=== PATIENT | female | born 1990 | race African-American/Black ===

== ENCOUNTER 2017-09-22 15:08 | Emergency (ER) | payer SELFPAY ==
[~2017-09-22] VITALS: Ht 152.4 cm; Wt 51.7 kg
[2017-09-22 15:32] VITALS: BP 115/72
[2017-09-22] MEDS ORDERED: EPINEPHrine 1mg/1ml Amp SUBQ ONE (16:00)
[2017-09-22] MEDS ORDERED: HYDROCORTISONE30 G2 TP (16:21)
[2017-09-22] MEDS ORDERED: BENADRYL25 MG ORAL (16:21)
[2017-09-22] MEDS ORDERED: PREDNISONE20 MG ORAL (16:21)
[2017-09-22] MEDS ORDERED: EPIPEN 2-P0.3 MG/0.3 IM (16:21)
--- NOTE | 2017-09-22 16:21 | Emergency Room Report ---
History of Present Illness General Chief Complaint: Allergic Reaction Source: Patient Present Illness HPI 27-year-old female patient presents ER complaining of allergic reaction status post 2 days ago. Reports she has multiple allergies including to wheat food and 2 days ago, states that she began to experience facial swelling at that time. States that she went home and took Zyrtec to help alleviate symptoms. Denies shortness of breath or other symptoms at that time. Reports that she has an EpiPen but did not use it because she was not having difficulty breathing. Reports woke up yesterday with increased facial swelling, denies tongue swelling or shortness of breath. Reports took another Zyrtec and rested. Reports woke up today with decreased facial swelling compared to yesterday symptoms. Reports she has been using cool compresses to decrease swelling. Reports been able to eat and drink normally without difficulty. Denies vomiting, chest pain, shortness of breath, other acute symptoms. Denies tongue swelling. denies new rash elsewhere on body, states he has a history of eczema, not currently taking medications for eczema. Allergies: Coded Allergies: CASEIN (Verified Allergy, Unknown, 09/22/17) CORN (Verified Allergy, Unknown, 09/22/17) PEANUT (Verified Allergy, Unknown, 09/22/17) SOY (Verified Allergy, Unknown, 09/22/17) TOMATO (Verified Allergy, Unknown, 09/22/17) Wheat (Verified Allergy, Unknown, 09/22/17) YEAST (Verified Allergy, Unknown, 09/22/17) Uncoded Allergies: CHOCOLATE (Allergy, Unknown, 09/22/17) EGG WHITE (Allergy, Unknown, 09/22/17) SHELLFISH (Allergy, Unknown, 09/22/17) Patient History Past Medical History: see triage record Last Menstrual Period: 09/20/2017 Now: No Reviewed Nursing Documentation: PMH: Agreed; PSxH: Agreed Nursing Documentation-PMH Past Medical History: No History, Except For Review of Systems All Other Systems: negative except mentioned in HPI Physical Exam Vital Signs Date Time Temp Pulse Resp B/P (MAP) Pulse Ox O2 Delivery O2 Flow Rate FiO2 09/22/17 15:21 98.0 82 14 115/72 99 Room Air 98.1 Sp02 EP Interpretation: reviewed, normal General Appearance: well appearing, no apparent distress, alert, GCS 15, non- toxic Head: normocephalic, atraumatic, other - mild facial urticaria noted, more prominent on left cheek and left side of face, no erythema, no TTP Eyes: bilateral eye normal inspection, bilateral eye PERRL ENT: hearing grossly normal, normal pharynx, no angioedema, normal voice, TMs + canals normal, uvula midline, moist mucus membranes Neck: full range of motion Respiratory: lungs clear, normal breath sounds, no rhonchi, no respiratory distress, no accessory muscle use, no wheezing, speaking full sentences, other - no stridor Cardiovascular #1: regular rate, rhythm, no edema Musculoskeletal: back normal, digits/nails normal, gait/station normal, normal range of motion, non-tender Neurologic: alert, oriented x3, responsive, motor strength/tone normal, sensory intact Psychiatric: mood/affect normal Skin: rash - ezcematous dry skin Medical Decision Making PA Attestation Dr. Granda is my supervising Physician whom patient management has been discussed with. Diagnostic Impression: Primary Impression: Allergic reaction ER Course Pt. presents to the ED c/o allergic reaction. Ddx considered but are not limited to allergic reaction, anaphylaxis, urticaria , cellulitis, abscess. Vital signs: are WNL, pt. is afebrile ER COURSE: Consult Dr. Granda, will provide patient with single dose of subcutaneous epi in ER. Will discharge home with steroids orally, first dose given in the ER. Begin taking steroids tomorrow. Continue taking Zyrtec. May take Benadryl at night. I drowsiness. follow-up with PCP and customer resolution specialist. do not eat known allergens. Avoid exposure to known allergens. Keep EpiPen with you at all times. will provide Rx. Strict ER precautions given, return to ER immediately for new or worsening of symptoms. Cool compresses to help reduce swelling symptoms. Follow-up credit verification clerk discuss eczema. Keep skin well hydrated. May use topical hydrocortisone for symptoms. Do not apply topical steroid to face or skin creases. DISCHARGE: Rx provided for prednisone Rx provided for EpiPen Provided for Benadryl Rx provided for hydrocortisone cream At this time pt is stable for d/c to home. Patient is resting comfortably, in no acute distress, nontoxic appearing, talking without difficulty. Patient to take medications as instructed Will provide with patient care instructions and any necessary prescriptions. Care plan and follow-up instructions provided. Patient instructed to follow-up with primary care provider in 3 - 5 days. Patient questions asked and answered. Patient reports understanding and agreement to treatment plan. ER precautions given. Patient instructed to return to ER immediately for any new or worsening of symptoms including but not limited to increasing SOB, persistent fever, chest pain, intractable vomiting. - Please note that this Emergency Department Report was dictated using [employer] transcription technology software, occasionally this can lead to erroneous entry secondary to interpretation by the dictation equipment. Last Vital Signs Date Time Temp Pulse Resp B/P (MAP) Pulse Ox O2 Delivery O2 Flow Rate FiO2 09/22/17 15:32 98.1 79 14 115/72 99 Room Air 98.1 Disposition: HOME, SELF-CARE Condition: Stable Scripts Hydrocortisone (Hydrocortisone Cream 2.5%) Y Cream.appl 1 APPLIC TP BID for 7 Days, #15 GM Prov: Fermin Conteh 09/22/17 Diphenhydramine Hcl* (BENADRYL*) 25 Mg Capsule 25 MG ORAL Q6H PRN for Itching, #30 CAP Prov: Fermin Conteh 09/22/17 Prednisone* (PREDNISONE*) 20 Mg Tablet 40 MG ORAL DAILY for 4 Days, #8 TAB Prov: Fermin Conteh 09/22/17 Epinephrine (Epipen 2-Vinh) 0.3 Mg/0.3 Ml Auto.injct 0.3 MG IM PRN, #1 EA Prov: Fermin Conteh 09/22/17 Referrals: NON PHYSICIAN (PCP) Patient Instructions: Eczema, Epinephrine Injection, Food Allergy Additional Instructions: Followup with primary care provider in 3 -5 days. Discuss referral to customer resolution specialist. Avoid exposure and ingesting known allergens. Request referral to dermatology for eczema symptoms. Do not scratch or itch. Apply cool compresses to affected area. Take medications as directed. Do not apply hydrocortisone cream to face or skin creases. SE Benadryl drowsiness, do not take prior to drinking, driving, operating heavy machinery. Patient questions asked and answered. ER precautions given, patient instructed to return to ER immediately for any new or worsening of symptoms. [facility] Fermin Conteh Sep 22, 2017 16:21
[2017-09-22 16:30] VITALS: BP 119/70
== END 2017-09-22 16:28 | disposition home or self-care (01) ==
LOC: EMR 16:08
DX: T78.40XA Allergy, unspecified, initial encounter (principal); X58.XXXA Exposure to other specified factors, initial encounter; Z91.012 Allergy to eggs; Z91.010 Allergy to peanuts; Z91.013 Allergy to seafood; Z91.018 Allergy to other foods
CPT/HCPCS: 96372; 99283; J0171; J7512

== ENCOUNTER 2017-11-06 00:49 | Emergency (ER) | payer SELFPAY ==
[~2017-11-06] VITALS: Ht 152.4 cm; Wt 52.2 kg
[~2017-11-06 00:49] MED LIST: BENADRYL25 MG ORAL; EPIPEN 2-P0.3 MG/0.3 IM; HYDROCORTISONE30 G2 TP; PREDNISONE20 MG ORAL
--- NOTE | 2017-11-06 01:09 | Emergency Room Report ---
History of Present Illness General Chief Complaint: Allergic Reaction Source: Patient Present Illness HPI Patient presents with allergic reaction. She feels swelling in her face. She thinks might be related to coconut rinse that she had been in her hair. She took an EpiPen at midnight and also Benadryl. Her face is still pulsing at this time. She is unsure whether the swelling has stopped worsening at this time. She denies pain. The patient has eczema. This is stable. She denies any vomiting, throat swelling or wheezing and no dyspnea. Patient is on her menstruation at this time. No fevers, chills, change in bowels, dysuria, headache. Allergies: Coded Allergies: CASEIN (Verified Allergy, Unknown, 09/22/17) CORN (Verified Allergy, Unknown, 09/22/17) PEANUT (Verified Allergy, Unknown, 09/22/17) SOY (Verified Allergy, Unknown, 09/22/17) TOMATO (Verified Allergy, Unknown, 09/22/17) Wheat (Verified Allergy, Unknown, 09/22/17) YEAST (Verified Allergy, Unknown, 09/22/17) Uncoded Allergies: CHOCOLATE (Allergy, Unknown, 09/22/17) EGG WHITE (Allergy, Unknown, 09/22/17) SHELLFISH (Allergy, Unknown, 09/22/17) Patient History Past Medical History: see triage record Social History: Denies: smoking Social History Narrative with sig other - works Last Menstrual Period: Sep Reviewed Nursing Documentation: PMH: Agreed; PSxH: Agreed Review of Systems All Other Systems: negative except mentioned in HPI Physical Exam Vital Signs Date Time Temp Pulse Resp B/P (MAP) Pulse Ox O2 Delivery O2 Flow Rate FiO2 11/06/17 00:56 98.5 104 18 118/74 100 Room Air 98.4 Sp02 EP Interpretation: reviewed, normal General Appearance: well appearing, no apparent distress, GCS 15 Head: normocephalic Eyes: bilateral eye PERRL, bilateral eye other - facial swelling ENT: normal pharynx, no angioedema, normal voice, moist mucus membranes Neck: supple Respiratory: lungs clear, normal breath sounds Cardiovascular #1: regular rate, rhythm Cardiovascular #2: 2+ radial (R) Gastrointestinal: normal inspection, normal bowel sounds, non tender, no mass, non-distended Musculoskeletal: back normal, gait/station normal, normal range of motion Neurologic: alert, oriented x3, grossly normal Psychiatric: mood/affect normal Skin: warm/dry, other - eczematous skin and facial swelling Medical Decision Making Diagnostic Impression: Primary Impression: Allergic reaction Qualified Codes: T78.40XA - Allergy, unspecified, initial encounter Additional Impressions: Hypokalemia Eczema Qualified Codes: L30.9 - Dermatitis, unspecified ER Course Patient presents with facial swelling after exposure to coconut rinse and after using EpiPen and benadryl. DDx; anaphylaxis, local allergic reaction amongst others. As she has given herself epi, will only repeat if sy worsening. Evaluation with labs and cardiac monitoring. Will treat with Solu-medrol and benadryl with IV hydration. Labs significant for leukocytosis (probably secondary to epi), low potassium. Improved with treatment and observation. Swelling somewhat improved. Potassium given po and IV. Etiology of low potassium unclear. Discussed findings and treatment plan with patient. Patient stable for outpatient observation and treatment. Laboratory Tests Test 11/06/17 01:15 White Blood Count 13.6 K/UL (4.8-10.8) H Red Blood Count 4.23 M/UL (4.20-5.40) Hemoglobin 13.9 G/DL (12.0-16.0) Hematocrit 38.6 % (37.0-47.0) Mean Corpuscular Volume 91 FL (80-99) Mean Corpuscular Hemoglobin 32.9 PG (27.0-31.0) H Mean Corpuscular Hemoglobin Concent 36.1 G/DL (32.0-36.0) H Red Cell Distribution Width 10.9 % (11.6-14.8) L Platelet Count 270 K/UL (150-450) Mean Platelet Volume 7.2 FL (6.5-10.1) Neutrophils (%) (Auto) 67.8 % (45.0-75.0) Lymphocytes (%) (Auto) 14.1 % (20.0-45.0) L Monocytes (%) (Auto) 7.2 % (1.0-10.0) Eosinophils (%) (Auto) 10.1 % (0.0-3.0) H Basophils (%) (Auto) 0.7 % (0.0-2.0) Urine Color Pale yellow Urine Appearance Clear Urine pH 5 (4.5-8.0) Urine Specific [place] 1.015 (1.005-1.035) Urine Protein Negative (NEGATIVE) Urine Glucose (UA) Negative (NEGATIVE) Urine Ketones Negative (NEGATIVE) Urine Blood 5+ (NEGATIVE) H Urine Nitrite Negative (NEGATIVE) Urine Bilirubin Negative (NEGATIVE) Urine Urobilinogen Normal MG/DL (0.0-1.0) Urine Leukocyte Esterase 1+ (NEGATIVE) H Urine RBC 2-4 /HPF (0 - 2) H Urine WBC 0-2 /HPF (0 - 2) Urine Squamous Epithelial Cells Occasional /LPF Urine Bacteria Occasional /HPF (NONE) Urine HCG, Qualitative Negative (NEGATIVE) Sodium Level 139 MMOL/L (136-145) Potassium Level 2.9 MMOL/L (3.5-5.1) L Chloride Level 106 MMOL/L (98-107) Carbon Dioxide Level 26 MMOL/L (21-32) Anion Gap 7 mmol/L (5-15) Blood Urea Nitrogen 8 mg/dL (7-18) Creatinine 0.9 MG/DL (0.55-1.30) Estimate Glomerular Filtration Rate > 60 mL/min (>60) Glucose Level 108 MG/DL (74-106) H Calcium Level 8.8 MG/DL (8.5-10.1) Total Bilirubin 0.4 MG/DL (0.2-1.0) Aspartate Amino Transferase (AST) 21 U/L (15-37) Alanine Aminotransferase (ALT) 22 U/L (12-78) Alkaline Phosphatase 71 U/L (46-116) Total Protein 7.2 G/DL (6.4-8.2) Albumin 3.5 G/DL (3.4-5.0) Globulin 3.7 g/dL Albumin/Globulin Ratio 0.9 (1.0-2.7) L Rhythm Strip Diag. Results EP Interpretation: yes Rhythm: NSR, no PVC's, no ectopy Last Vital Signs Date Time Temp Pulse Resp B/P (MAP) Pulse Ox O2 Delivery O2 Flow Rate FiO2 11/06/17 05:35 98.1 79 19 118/72 100 Room Air 98.4 Status: improved Disposition: HOME, SELF-CARE Condition: Improved Scripts Potassium Chloride* (K-DUR*) 20 Meq Tab.er.prt 20 MEQ ORAL DAILY, #7 TAB 0 Refills Prov: Nydia,Anthony M.D. 11/06/17 Epinephrine (Epipen 2-Vinh) 0.3 Mg/0.3 Ml Auto.injct 0.3 MG IM NEEDED PRN for allergy, #1 EA 1 Refill Prov: Anthony Stafford M.D. 11/06/17 Diphenhydramine Hcl* (BENADRYL*) 25 Mg Capsule 25 MG ORAL Q6H PRN for Itching, #20 CAP Prov: Anthony Stafford M.D. 11/06/17 Prednisone* (PREDNISONE*) 20 Mg Tablet 40 MG ORAL DAILY, #10 TAB Prov: Anthony Stafford M.D. 11/06/17 Referrals: NOT CHOSEN MAGGIE/,REFERRING (PCP) Anthony Stafford M.D. Nov 06, 2017 01:09
[2017-11-06 01:15] VITALS: BP 117/75
[2017-11-06] MEDS ORDERED: Solu-MEDROL 125mg Inj IVP ONE (01:15)
[2017-11-06] MEDS ORDERED: DiphenhydrAMINE 50mg/ml Inj IVP ONE (01:15)
[2017-11-06 01:36] LABS: APPEARANCE,URINE CLEAR; BILIRUBIN, URINE NEGATIVE (NEGATIVE); COLOR,URINE PALE YELLOW; GLUCOSE, URINE (UA) NEGATIVE (NEGATIVE); KETONES,URINE NEGATIVE (NEGATIVE); LEUKOCYTE ESTERASE ,URINE 1+ (NEGATIVE); NITRITE,URINE NEGATIVE (NEGATIVE); PH,URINE 5 (4.5-8.0); PROTEIN,URINE NEGATIVE (NEGATIVE); UROBILINOGEN,URINE NORMAL MG/DL (0.0-1.0)
[2017-11-06 01:46] LABS: BASOPHILS % (AUTO) 0.7 % (0.0-2.0); EOSINOPHILS % (AUTO) 10.1 % (0.0-3.0); HEMATOCRIT 38.6 % (37.0-47.0); HEMOGLOBIN 13.9 G/DL (12.0-16.0); LYMPHOCYTES % (AUTO) 14.1 % (20.0-45.0); MEAN CORPUSCULAR VOLUME 91 FL (80-99); MONOCYTES % (AUTO) 7.2 % (1.0-10.0); NEUTROPHILS % (AUTO) 67.8 % (45.0-75.0); PLATELET COUNT 270 K/UL (150-450); RED BLOOD COUNT 4.23 M/UL (4.20-5.40); RED CELL DISTRIBUTION WIDTH 10.9 % (11.6-14.8); WHITE BLOOD COUNT 13.6 K/UL (4.8-10.8)
[2017-11-06 01:49] LABS: ANION GAP 7 mmol/L (5-15); BLOOD UREA NITROGEN 8 mg/dL (7-18); CALCIUM 8.8 MG/DL (8.5-10.1); CARBON DIOXIDE 26 MMOL/L (21-32); CHLORIDE 106 MMOL/L (98-107); CREATININE 0.9 MG/DL (0.55-1.30); POTASSIUM 2.9 MMOL/L (3.5-5.1); SODIUM 139 MMOL/L (136-145)
[2017-11-06 01:53] LABS: ALANINE AMINOTRANSFERASE 22 U/L (12-78); ALBUMIN 3.5 G/DL (3.4-5.0); ALBUMIN/GLOBULIN RATIO 0.9 (1.0-2.7); ALKALINE PHOSPHATASE 71 U/L (46-116); ASPARTATE AMINO TRANSFERASE 21 U/L (15-37); BILIRUBIN,TOTAL 0.4 MG/DL (0.2-1.0)
[2017-11-06] MEDS ORDERED: BENADRYL25 MG ORAL (05:29)
[2017-11-06] MEDS ORDERED: POTASSIUM CHLO20 ME1 ORAL (05:29)
[2017-11-06] MEDS ORDERED: PREDNISONE20 MG ORAL (05:29)
[2017-11-06] MEDS ORDERED: EPIPEN 2-P0.3 MG/0.3 IM (05:29)
[2017-11-06 05:35] VITALS: BP 118/72
== END 2017-11-06 05:35 | disposition home or self-care (01) ==
LOC: EMR 01:06
DX: T78.40XA Allergy, unspecified, initial encounter (principal); X58.XXXA Exposure to other specified factors, initial encounter; E87.6 Hypokalemia; L30.9 Dermatitis, unspecified; Z91.012 Allergy to eggs; Z91.010 Allergy to peanuts; Z91.013 Allergy to seafood; Z91.018 Allergy to other foods
CPT/HCPCS: 36415; 80053; 81003; 81025; 85025; 96361; 96365; 96375; 99284; J1200; J2930; J3480; J8499